=== PATIENT | male | born 1995 | race Caucasian/White ===

== ENCOUNTER 2016-11-23 07:35 | Emergency (ER) | payer BC ==
[~2016-11-23] VITALS: Ht 185.4 cm; Wt 136.9 kg
[2016-11-23 08:09] LABS: ADD MIUA? NO; BILIRUBIN NEGATIVE; BLOOD NEGATIVE; COLOR YELLOW ((YELLOW)); GLUCOSE (STRIP) NEGATIVE; KETONES NEGATIVE; LEUKOCYTES NEGATIVE; NITRITE NEGATIVE; PROTEIN (STRIP) NEGATIVE; SPECIFIC GRAVITY 1.027 (1.000-1.030); UCUL ADDED? NO; UROBILINOGEN 0.2 MG/DL (0.2-1.0)
[2016-11-23] MEDS ORDERED: TYLENOL WITH C1 EACH PO (09:27)
[2016-11-23] MEDS ORDERED: FLEXERIL5 MG PO (09:28)
[2016-11-23 09:35] VITALS: BP 121/80
== END 2016-11-23 09:36 | disposition home or self-care (01) ==
LOC: EME 07:35
PROVIDERS: Emergency Medicine
DX: M54.5 Low back pain (principal); R21 Rash and other nonspecific skin eruption; G89.29 Other chronic pain
CPT/HCPCS: 72100; 81003; 99281; 99283; J1885